=== PATIENT | male | born 1990 | race Caucasian/White ===

== ENCOUNTER 2018-02-10 19:25 | Inpatient (IN) | payer OTHER ==
[2018-02-10] MEDS ORDERED: morphine 2 MG INJ IV (20:30)
[2018-02-10] MEDS: LORAZEPAM 2 MG INJ IV (22:49)
[2018-02-10] MEDS: DEXTROSE 5%-0.45% NACL 1,000 ML IV (22:50)
[2018-02-11 01:21] LABS: ADD MAN DIFF? NO
[2018-02-11 01:24] LABS: WHITE BLOOD COUNT 8.9 10^3/ul (4.8-10.8)
[2018-02-11 01:24] LABS: BASOPHILS % 0.4 % (0.0-2.0); EOSINOPHILS # 0.1 10^3/ul (0.0-0.5); EOSINOPHILS % 0.6 % (0.0-7.0); HEMATOCRIT 38.3 % (42.0-52.0); LYMPHOCYTES # 1.2 10^3/ul (0.8-2.9); LYMPHOCYTES % 13.4 % (15.0-51.0); MEAN CORPUSCULAR HEMOGLOBIN 31.4 pg (29.0-33.0); MEAN CORPUSCULAR HGB CONC 33.9 g/dl (32.0-37.0); MEAN CORPUSCULAR VOLUME 92.5 fl (82.0-101.0); MONOCYTE # 0.6 10^3/ul (0.3-0.9); MONOCYTES % 6.8 % (0.0-11.0); NEUTROPHILS % 78.5 % (39.0-77.0); PLATELET COUNT 372 10^3/UL (140-415); RED BLOOD COUNT 4.14 10^6/ul (4.70-6.10); RED CELL DISTRIBUTION WIDTH 15.4 % (11.5-14.5)
[2018-02-11 01:41] LABS: ALANINE AMINOTRANSFERASE 141 IU/L (13-69); ALBUMIN 3.4 g/dl (3.3-4.9); ALBUMIN/GLOBULIN RATIO 1.17; ALKALINE PHOSPHATASE 296 IU/L (42-121); ANION GAP 10 (8-16); ASPARTATE AMINO TRANSFERASE 73 IU/L (15-46); BILIRUBIN,INDIRECT 1.6 mg/dl (0-1.1); BLOOD UREA NITROGEN 6 mg/dl (7-20); CALCIUM 9.1 mg/dl (8.4-10.2); CARBON DIOXIDE 27 mmol/L (21-31); CHLORIDE 105 mmol/L (97-110); CREATININE 0.72 mg/dl (0.61-1.24); GLUCOSE 104 mg/dl (70-220); LIPASE 210 U/L (23-300); PHOSPHORUS 3.3 mg/dl (2.5-4.9); POTASSIUM 3.2 mmol/L (3.5-5.1); SODIUM 139 mmol/L (135-144); TOTAL PROTEIN 6.3 g/dl (6.1-8.1)
[2018-02-11] MEDS: DEXTROSE 5%-0.45% NACL 1,000 ML IV ×2 (06:30→15:03)
[2018-02-11] MEDS: POTASSIUM CHLORIDE 100 ML IVPB (06:57)
[2018-02-11] MEDS: LORAZEPAM 2 MG INJ IV ×2 (06:57→15:03)
[2018-02-11] MEDS: GABAPENTIN 100 MG CAP PO ×3 (10:24→21:00)
[2018-02-11] MEDS: clonAZEPAM 0.5 MG TAB PO ×2 (10:24→18:43)
[2018-02-11] MEDS: LURASIDONE XX ×2 (12:50→20:04)
[2018-02-11] MEDS: LATUDA 60 MG PO (21:00)
[2018-02-12 07:36] LABS: ADD MAN DIFF? NO
[2018-02-12 07:38] LABS: BASOPHIL # 0.1 10^3/ul (0.0-0.1); BASOPHILS % 0.8 % (0.0-2.0); EOSINOPHILS # 0.1 10^3/ul (0.0-0.5); EOSINOPHILS % 1.2 % (0.0-7.0); HEMATOCRIT 41.4 % (42.0-52.0); HEMOGLOBIN 13.9 g/dl (14.0-18.0); LYMPHOCYTES # 1.2 10^3/ul (0.8-2.9); LYMPHOCYTES % 19.3 % (15.0-51.0); MEAN CORPUSCULAR HEMOGLOBIN 30.7 pg (29.0-33.0); MEAN CORPUSCULAR HGB CONC 33.6 g/dl (32.0-37.0); MEAN CORPUSCULAR VOLUME 91.4 fl (82.0-101.0); MEAN PLATELET VOLUME 11.3 fl (7.4-10.4); MONOCYTE # 0.4 10^3/ul (0.3-0.9); NEUTROPHIL # 4.3 10^3/ul (1.6-7.5); NEUTROPHILS % 71.5 % (39.0-77.0); PLATELET COUNT 390 10^3/UL (140-415); RED BLOOD COUNT 4.53 10^6/ul (4.70-6.10); RED CELL DISTRIBUTION WIDTH 15.1 % (11.5-14.5)
[2018-02-12 08:00] LABS: ALANINE AMINOTRANSFERASE 147 IU/L (13-69); ALBUMIN 3.9 g/dl (3.3-4.9); ALBUMIN/GLOBULIN RATIO 1.34; ALKALINE PHOSPHATASE 326 IU/L (42-121); ANION GAP 16 (8-16); ASPARTATE AMINO TRANSFERASE 103 IU/L (15-46); BILIRUBIN,TOTAL 8.2 mg/dl (0.2-1.3); BLOOD UREA NITROGEN 6 mg/dl (7-20); CALCIUM 9.5 mg/dl (8.4-10.2); CARBON DIOXIDE 27 mmol/L (21-31); CHLORIDE 103 mmol/L (97-110); GLUCOSE 103 mg/dl (70-220); POTASSIUM 3.5 mmol/L (3.5-5.1); SODIUM 142 mmol/L (135-144); TOTAL PROTEIN 6.8 g/dl (6.1-8.1)
[2018-02-12] MEDS: GABAPENTIN 100 MG CAP PO ×3 (09:00→20:44)
[2018-02-12] MEDS: DEXTROSE 5%-0.45% NACL 1,000 ML IV (09:04)
[2018-02-12] MEDS: LORAZEPAM 2 MG INJ IV (10:07)
[2018-02-12] MEDS ORDERED: IOHEXOL 300MG/ML 30 ML BTL ×2 (13:02→15:34)
[2018-02-12] MEDS ORDERED: MIDAZOLAM 1 MG/ML 2 ML INJ (15:48)
[2018-02-12] MEDS ORDERED: METOCLOPRAMIDE 10 MG INJ (15:48)
[2018-02-12] MEDS ORDERED: PROPOFOL 20 ML (15:51)
[2018-02-12] MEDS ORDERED: ONDANSETRON 4 MG INJ (15:51)
[2018-02-12] MEDS ORDERED: SUCCINYLCHOLINE CHLORIDE 100 MG/5 ML SYG IV (15:51)
[2018-02-12] MEDS ORDERED: FENTAnyl 50 MCG/ML VIAL (15:51)
[2018-02-12] MEDS ORDERED: HYDROmorphONE 1 MG/5 ML IV SYRINGE IV ×3 (16:30)
[2018-02-12] MEDS ORDERED: ONDANSETRON 4 MG INJ IV (16:30)
[2018-02-12] MEDS: LATUDA 60 MG PO (20:44)
[2018-02-13] MEDS: INDOMETHACIN 50 MG SUPP PR (05:49)
[2018-02-13] MEDS: SOD CHLORIDE 0.9% 1,000 ML IV (05:49)
[2018-02-13] MEDS: ONDANSETRON 4 MG INJ IV ×2 (07:39→19:13)
[2018-02-13] MEDS: DULOXETINE 30 MG CAP DR PO (07:42)
[2018-02-13] MEDS: GABAPENTIN 100 MG CAP PO ×3 (07:42→21:04)
[2018-02-13] MEDS ORDERED: BUPIVACAINE 0.25% (MPF) 30 ML INJ (14:28)
[2018-02-13] MEDS ORDERED: BUPIVACAINE 0.25%/EPI (SDV) 30 ML INJ (15:42)
[2018-02-13] MEDS ORDERED: NEOSTIGMINE 3 MG/3 ML SYRINGE (15:55)
[2018-02-13] MEDS ORDERED: MIDAZOLAM 1 MG/ML 2 ML INJ (15:55)
[2018-02-13] MEDS ORDERED: METOCLOPRAMIDE 10 MG INJ (15:55)
[2018-02-13] MEDS ORDERED: ONDANSETRON 4 MG INJ (15:55)
[2018-02-13] MEDS ORDERED: ROCURONIUM 50 MG INJ (15:55)
[2018-02-13] MEDS ORDERED: PROPOFOL 20 ML ×2 (15:55→17:38)
[2018-02-13] MEDS ORDERED: ROPIVACAINE 0.5 % 30 ML VIAL (15:55)
[2018-02-13] MEDS ORDERED: KETOROLAC 30 MG INJ (15:55)
[2018-02-13] MEDS ORDERED: DIPHENHYDRAMINE 50 MG INJ IV (16:00)
[2018-02-13] MEDS ORDERED: MEPERIDINE 25 MG INJ IV (16:00)
[2018-02-13] MEDS ORDERED: HYDROmorphONE 1 MG/5 ML IV SYRINGE IV ×2 (16:00)
[2018-02-13] MEDS ORDERED: CEFAZOLIN 1 GM INJ (16:50)
[2018-02-13] MEDS: BUPIVACAINE 0.25%/EPI (SDV) 30 ML INJ INJ (17:07)
[2018-02-13] MEDS ORDERED: FENTAnyl 50 MCG/ML VIAL (17:53)
[2018-02-13] MEDS ORDERED: morphine 2 MG INJ IV (18:30)
[2018-02-13] MEDS ORDERED: OXYCODONE/ACETAMINOPHEN (5/325) TAB PO (18:30)
[2018-02-13] MEDS: HYDROmorphONE 1 MG/5 ML IV SYRINGE IV (19:16)
[2018-02-13] MEDS: LATUDA 60 MG PO (21:05)
[2018-02-13] MEDS ORDERED: morphine LIQ (10 MG/5 ML) CUP PO (23:00)
[2018-02-14] MEDS: clonAZEPAM 0.5 MG TAB PO ×2 (01:35→20:00)
[2018-02-14 06:38] LABS: ADD MAN DIFF? NO
[2018-02-14 06:44] LABS: BASOPHILS % 0.2 % (0.0-2.0); EOSINOPHILS # 0.1 10^3/ul (0.0-0.5); EOSINOPHILS % 0.3 % (0.0-7.0); HEMATOCRIT 38.8 % (42.0-52.0); HEMOGLOBIN 13.2 g/dl (14.0-18.0); LYMPHOCYTES % 6.7 % (15.0-51.0); MEAN CORPUSCULAR HEMOGLOBIN 30.6 pg (29.0-33.0); MEAN CORPUSCULAR VOLUME 89.8 fl (82.0-101.0); MEAN PLATELET VOLUME 11.5 fl (7.4-10.4); MONOCYTE # 0.7 10^3/ul (0.3-0.9); MONOCYTES % 4.8 % (0.0-11.0); NEUTROPHIL # 13.2 10^3/ul (1.6-7.5); NEUTROPHILS % 87.3 % (39.0-77.0); PLATELET COUNT 385 10^3/UL (140-415); RED BLOOD COUNT 4.32 10^6/ul (4.70-6.10); RED CELL DISTRIBUTION WIDTH 15.4 % (11.5-14.5)
[2018-02-14 06:44] LABS: WHITE BLOOD COUNT 15.2 10^3/ul (4.8-10.8)
[2018-02-14] MEDS: ONDANSETRON 4 MG INJ IV ×2 (06:59→14:21)
[2018-02-14] MEDS: OXYCODONE/ACETAMINOPHEN (5/325) TAB PO (07:00)
[2018-02-14 07:05] LABS: ALANINE AMINOTRANSFERASE 113 IU/L (13-69); ALBUMIN/GLOBULIN RATIO 1.07; ALKALINE PHOSPHATASE 260 IU/L (42-121); ANION GAP 11 (8-16); ASPARTATE AMINO TRANSFERASE 116 IU/L (15-46); BILIRUBIN,INDIRECT 1.6 mg/dl (0-1.1); BILIRUBIN,TOTAL 6.1 mg/dl (0.2-1.3); BLOOD UREA NITROGEN 11 mg/dl (7-20); CALCIUM 8.5 mg/dl (8.4-10.2); CARBON DIOXIDE 28 mmol/L (21-31); CHLORIDE 103 mmol/L (97-110); CREATININE 0.67 mg/dl (0.61-1.24); GLUCOSE 109 mg/dl (70-220); POTASSIUM 3.6 mmol/L (3.5-5.1); SODIUM 138 mmol/L (135-144); TOTAL PROTEIN 5.8 g/dl (6.1-8.1)
[2018-02-14] MEDS: DULOXETINE 30 MG CAP DR PO (09:25)
[2018-02-14] MEDS: GABAPENTIN 100 MG CAP PO ×3 (09:25→20:00)
[2018-02-14] MEDS: LATUDA 60 MG PO (20:01)
[2018-02-14] MEDS: SOD CHLORIDE 0.9% 500 ML IV (23:43)
[2018-02-15 06:32] LABS: ADD MAN DIFF? NO
[2018-02-15 06:44] LABS: WHITE BLOOD COUNT 20.6 10^3/ul (4.8-10.8)
[2018-02-15 06:44] LABS: BASOPHILS % 0.1 % (0.0-2.0); EOSINOPHILS % 0.2 % (0.0-7.0); HEMATOCRIT 37.5 % (42.0-52.0); HEMOGLOBIN 12.9 g/dl (14.0-18.0); MEAN CORPUSCULAR HEMOGLOBIN 31.1 pg (29.0-33.0); MEAN CORPUSCULAR HGB CONC 34.4 g/dl (32.0-37.0); MEAN CORPUSCULAR VOLUME 90.4 fl (82.0-101.0); MEAN PLATELET VOLUME 11.8 fl (7.4-10.4); MONOCYTE # 1.1 10^3/ul (0.3-0.9); MONOCYTES % 5.2 % (0.0-11.0); NEUTROPHIL # 18.3 10^3/ul (1.6-7.5); NEUTROPHILS % 88.8 % (39.0-77.0); PLATELET COUNT 363 10^3/UL (140-415); RED BLOOD COUNT 4.15 10^6/ul (4.70-6.10); RED CELL DISTRIBUTION WIDTH 15.5 % (11.5-14.5)
[2018-02-15 07:11] LABS: ALANINE AMINOTRANSFERASE 90 IU/L (13-69); ALBUMIN 3.2 g/dl (3.3-4.9); ALBUMIN/GLOBULIN RATIO 1.18; ALKALINE PHOSPHATASE 267 IU/L (42-121); ANION GAP 16 (8-16); ASPARTATE AMINO TRANSFERASE 77 IU/L (15-46); BILIRUBIN,INDIRECT 1.7 mg/dl (0-1.1); BILIRUBIN,TOTAL 6.3 mg/dl (0.2-1.3); BLOOD UREA NITROGEN 7 mg/dl (7-20); CALCIUM 8.6 mg/dl (8.4-10.2); CARBON DIOXIDE 27 mmol/L (21-31); CHLORIDE 100 mmol/L (97-110); CREATININE 0.58 mg/dl (0.61-1.24); GLUCOSE 96 mg/dl (70-220); POTASSIUM 3.5 mmol/L (3.5-5.1); SODIUM 139 mmol/L (135-144); TOTAL PROTEIN 5.9 g/dl (6.1-8.1)
[2018-02-15] MEDS: GABAPENTIN 100 MG CAP PO ×3 (07:57→21:00)
[2018-02-15] MEDS: DULOXETINE 30 MG CAP DR PO (07:57)
[2018-02-15] MEDS: LORAZEPAM 2 MG INJ IV ×2 (07:58→20:47)
[2018-02-15] MEDS: CEFAZOLIN 1 GM/50 ML (PMX) 50 ML IVPB ×3 (07:58→21:55)
[2018-02-15] MEDS ORDERED: CEFAZOLIN 1 GM/50 ML (PMX) 50 ML IVPB (14:00)
[2018-02-15] MEDS: LATUDA 60 MG PO (21:00)
[2018-02-16] MEDS: CEFAZOLIN 1 GM/50 ML (PMX) 50 ML IVPB ×3 (05:55→22:35)
[2018-02-16 06:55] LABS: ADD MAN DIFF? NO
[2018-02-16 06:57] LABS: BASOPHILS % 0.2 % (0.0-2.0); EOSINOPHILS # 0.1 10^3/ul (0.0-0.5); EOSINOPHILS % 0.3 % (0.0-7.0); HEMATOCRIT 36.3 % (42.0-52.0); HEMOGLOBIN 12.8 g/dl (14.0-18.0); LYMPHOCYTES # 1.1 10^3/ul (0.8-2.9); LYMPHOCYTES % 5.4 % (15.0-51.0); MEAN CORPUSCULAR HEMOGLOBIN 32.1 pg (29.0-33.0); MEAN CORPUSCULAR HGB CONC 35.3 g/dl (32.0-37.0); MEAN PLATELET VOLUME 11.3 fl (7.4-10.4); MONOCYTE # 1.3 10^3/ul (0.3-0.9); MONOCYTES % 6.2 % (0.0-11.0); NEUTROPHIL # 17.9 10^3/ul (1.6-7.5); NEUTROPHILS % 87.3 % (39.0-77.0); PLATELET COUNT 374 10^3/UL (140-415); RED BLOOD COUNT 3.99 10^6/ul (4.70-6.10); RED CELL DISTRIBUTION WIDTH 15.2 % (11.5-14.5)
[2018-02-16 06:57] LABS: WHITE BLOOD COUNT 20.6 10^3/ul (4.8-10.8)
[2018-02-16 07:26] LABS: ALANINE AMINOTRANSFERASE 65 IU/L (13-69); ALBUMIN 3.1 g/dl (3.3-4.9); ALBUMIN/GLOBULIN RATIO 1.06; ALKALINE PHOSPHATASE 234 IU/L (42-121); ANION GAP 14 (8-16); ASPARTATE AMINO TRANSFERASE 49 IU/L (15-46); BILIRUBIN,INDIRECT 1.6 mg/dl (0-1.1); BILIRUBIN,TOTAL 6.6 mg/dl (0.2-1.3); BLOOD UREA NITROGEN 9 mg/dl (7-20); CALCIUM 8.5 mg/dl (8.4-10.2); CARBON DIOXIDE 28 mmol/L (21-31); CHLORIDE 97 mmol/L (97-110); GLUCOSE 102 mg/dl (70-220); POTASSIUM 3.5 mmol/L (3.5-5.1); SODIUM 135 mmol/L (135-144)
[2018-02-16] MEDS: GABAPENTIN 100 MG CAP PO ×3 (08:16→20:19)
[2018-02-16] MEDS: DULOXETINE 30 MG CAP DR PO (08:16)
[2018-02-16] MEDS: LATUDA 60 MG PO ×2 (09:03→20:20)
[2018-02-16] MEDS: LORAZEPAM 2 MG INJ IV (12:35)
[2018-02-17] MEDS: CEFAZOLIN 1 GM/50 ML (PMX) 50 ML IVPB (05:28)
[2018-02-17] MEDS: DULOXETINE 30 MG CAP DR PO (07:40)
[2018-02-17] MEDS: GABAPENTIN 100 MG CAP PO (07:41)
[2018-02-17 10:11] LABS: ADD MAN DIFF? NO
[2018-02-17 10:13] LABS: WHITE BLOOD COUNT 20.6 10^3/ul (4.8-10.8)
[2018-02-17 10:13] LABS: BASOPHIL # 0.1 10^3/ul (0.0-0.1); BASOPHILS % 0.4 % (0.0-2.0); EOSINOPHILS # 0.1 10^3/ul (0.0-0.5); EOSINOPHILS % 0.4 % (0.0-7.0); HEMATOCRIT 38.7 % (42.0-52.0); HEMOGLOBIN 13.5 g/dl (14.0-18.0); LYMPHOCYTES # 1.3 10^3/ul (0.8-2.9); LYMPHOCYTES % 6.1 % (15.0-51.0); MEAN CORPUSCULAR HEMOGLOBIN 31.5 pg (29.0-33.0); MEAN CORPUSCULAR HGB CONC 34.9 g/dl (32.0-37.0); MEAN CORPUSCULAR VOLUME 90.2 fl (82.0-101.0); MEAN PLATELET VOLUME 10.7 fl (7.4-10.4); MONOCYTE # 1.3 10^3/ul (0.3-0.9); MONOCYTES % 6.4 % (0.0-11.0); NEUTROPHIL # 17.8 10^3/ul (1.6-7.5); PLATELET COUNT 491 10^3/UL (140-415); RED BLOOD COUNT 4.29 10^6/ul (4.70-6.10); RED CELL DISTRIBUTION WIDTH 15.2 % (11.5-14.5)
[2018-02-17 10:36] LABS: ALANINE AMINOTRANSFERASE 52 IU/L (13-69); ALBUMIN 3.5 g/dl (3.3-4.9); ALKALINE PHOSPHATASE 257 IU/L (42-121); ANION GAP 16 (8-16); ASPARTATE AMINO TRANSFERASE 58 IU/L (15-46); BILIRUBIN,INDIRECT 1.6 mg/dl (0-1.1); BILIRUBIN,TOTAL 4.5 mg/dl (0.2-1.3); BLOOD UREA NITROGEN 10 mg/dl (7-20); CALCIUM 8.9 mg/dl (8.4-10.2); CARBON DIOXIDE 27 mmol/L (21-31); CHLORIDE 95 mmol/L (97-110); CREATININE 0.58 mg/dl (0.61-1.24); GLUCOSE 124 mg/dl (70-220); POTASSIUM 3.5 mmol/L (3.5-5.1); SODIUM 134 mmol/L (135-144)
== END 2018-02-17 11:00 | disposition home or self-care (01) | DRG 419 ==
LOC: 5EC 19:25
PROC: 0FC98ZZ Extirpation of Matter from Common Bile Duct, Via Natural or Artificial Opening Endoscopic (ICD-10-PCS; 2018-02-12 14:30)
PROC: 0F798DZ Dilation of Common Bile Duct with Intraluminal Device, Via Natural or Artificial Opening Endoscopic (ICD-10-PCS; 2018-02-12 14:30)
PROC: 0FT44ZZ Resection of Gallbladder, Percutaneous Endoscopic Approach (ICD-10-PCS; principal; 2018-02-12 15:39)
DX: K80.62 Calculus of gallbladder and bile duct with acute cholecystitis without obstruction (principal); F25.1 Schizoaffective disorder, depressive type; F41.9 Anxiety disorder, unspecified; F17.200 Nicotine dependence, unspecified, uncomplicated
CPT/HCPCS: 74018; 74181; 74330; 78226; 80053; 83690; 83735; 84100; 85025; 88304

== ENCOUNTER 2018-02-20 16:18 | Inpatient (IN) | payer OTHER ==
[2018-02-20] MEDS ORDERED: NON-FORMULARY/PATIENT OWN MED (Lurasidone Hcl (Latuda) 60 MG) PO (18:00)
[2018-02-20] MEDS ORDERED: clonAZEPAM 0.5 MG TAB PO (18:00)
[2018-02-20] MEDS ORDERED: morphine 2 MG INJ IV (18:00)
[2018-02-20] MEDS ORDERED: NAPROXEN 500 MG TAB PO (18:00)
[2018-02-20] MEDS ORDERED: DOCUSATE SODIUM 100 MG CAP PO (18:00)
[2018-02-20] MEDS ORDERED: NACL 0.9% 3 ML SYG IV (18:00)
[2018-02-20] MEDS ORDERED: ONDANSETRON 4 MG INJ IV (18:00)
[2018-02-20] MEDS ORDERED: ACETAMINOPHEN 325 MG TAB PO (18:00)
[2018-02-20] MEDS: PIPER-TAZO 3.375 GM IV (PMX) 100 ML IVPB (18:39)
[2018-02-20] MEDS ORDERED: MAGNESIUM HYDROXIDE 30ML CUP PO (19:30)
[2018-02-20] MEDS ORDERED: BISACODYL (EC) 5 MG TAB PO (19:30)
[2018-02-20] MEDS: PANTOPRAZOLE 40 MG INJ IV (19:55)
[2018-02-20] MEDS: LORAZEPAM 1 MG TAB PO (19:55)
[2018-02-20] MEDS: DOCUSATE SODIUM 100 MG CAP PO (21:00)
[2018-02-20] MEDS: GABAPENTIN 100 MG CAP PO (21:11)
[2018-02-20] MEDS: ZOLPIDEM 5 MG TAB PO (21:11)
[2018-02-21] MEDS: PIPER-TAZO 3.375 GM IV (PMX) 100 ML IVPB ×4 (00:22→18:16)
[2018-02-21] MEDS: PANTOPRAZOLE 40 MG INJ IV ×2 (05:57→12:00)
[2018-02-21 06:15] LABS: ADD MAN DIFF? NO
[2018-02-21 06:31] LABS: WHITE BLOOD COUNT 10.9 10^3/ul (4.8-10.8)
[2018-02-21 06:31] LABS: BASOPHIL # 0.1 10^3/ul (0.0-0.1); BASOPHILS % 0.6 % (0.0-2.0); EOSINOPHILS # 0.2 10^3/ul (0.0-0.5); HEMATOCRIT 22.2 % (42.0-52.0); HEMOGLOBIN 7.5 g/dl (14.0-18.0); LYMPHOCYTES # 1.9 10^3/ul (0.8-2.9); LYMPHOCYTES % 17.3 % (15.0-51.0); MEAN CORPUSCULAR HEMOGLOBIN 30.9 pg (29.0-33.0); MEAN CORPUSCULAR HGB CONC 33.8 g/dl (32.0-37.0); MEAN CORPUSCULAR VOLUME 91.4 fl (82.0-101.0); MEAN PLATELET VOLUME 10.6 fl (7.4-10.4); MONOCYTE # 0.9 10^3/ul (0.3-0.9); MONOCYTES % 8.5 % (0.0-11.0); NEUTROPHIL # 7.3 10^3/ul (1.6-7.5); NEUTROPHILS % 67.1 % (39.0-77.0); PLATELET COUNT 367 10^3/UL (140-415); RED BLOOD COUNT 2.43 10^6/ul (4.70-6.10)
[2018-02-21 07:12] LABS: ALANINE AMINOTRANSFERASE 78 IU/L (13-69); ALBUMIN 2.3 g/dl (3.3-4.9); ALBUMIN/GLOBULIN RATIO 0.95; ALKALINE PHOSPHATASE 207 IU/L (42-121); ANION GAP 7 (8-16); ASPARTATE AMINO TRANSFERASE 99 IU/L (15-46); BILIRUBIN,INDIRECT 0.6 mg/dl (0-1.1); BILIRUBIN,TOTAL 0.6 mg/dl (0.2-1.3); BLOOD UREA NITROGEN 15 mg/dl (7-20); CALCIUM 8.1 mg/dl (8.4-10.2); CARBON DIOXIDE 28 mmol/L (21-31); CHLORIDE 105 mmol/L (97-110); CREATININE 0.63 mg/dl (0.61-1.24); GLUCOSE 93 mg/dl (70-220); MAGNESIUM 2.1 mg/dl (1.7-2.5); PHOSPHORUS 3.6 mg/dl (2.5-4.9); POTASSIUM 4.3 mmol/L (3.5-5.1); SODIUM 136 mmol/L (135-144); TOTAL PROTEIN 4.7 g/dl (6.1-8.1)
[2018-02-21] MEDS: LORAZEPAM 1 MG TAB PO ×2 (08:17→18:37)
[2018-02-21] MEDS: GABAPENTIN 100 MG CAP PO ×3 (08:17→20:59)
[2018-02-21] MEDS: LURASIDONE IS XX ×2 (08:30→16:30)
[2018-02-21] MEDS: DOCUSATE SODIUM 100 MG CAP PO ×2 (09:00→21:00)
[2018-02-21 10:38] LABS: OCCULT BLOOD STOOL POSITIVE (NEGATIVE)
[2018-02-21 10:40] LABS: HEMOGLOBIN A1C 5.4 % (0-5.9)
[2018-02-21] MEDS: PANTOPRAZOLE IV 80 MG in SOD CHLORIDE 0.9% 100 ML IV (13:30)
[2018-02-21] MEDS: SOD CHLORIDE 0.9% 250 ML IV* (15:00)
[2018-02-21 15:59] LABS: IMMEDIATE SPIN CROSSMATCH 1 2
[2018-02-21] MEDS: ZOLPIDEM 5 MG TAB PO (20:59)
[2018-02-22] MEDS: PIPER-TAZO 3.375 GM IV (PMX) 100 ML IVPB ×5 (00:08→23:03)
[2018-02-22] MEDS: LURASIDONE IS XX (00:30)
[2018-02-22] MEDS: PANTOPRAZOLE IV 80 MG in SOD CHLORIDE 0.9% 100 ML IV ×4 (00:59→23:04)
[2018-02-22 05:34] LABS: ADD MAN DIFF? NO
[2018-02-22 05:44] LABS: BASOPHIL # 0.1 10^3/ul (0.0-0.1); BASOPHILS % 0.7 % (0.0-2.0); EOSINOPHILS # 0.2 10^3/ul (0.0-0.5); EOSINOPHILS % 2.9 % (0.0-7.0); HEMATOCRIT 28.4 % (42.0-52.0); HEMOGLOBIN 9.8 g/dl (14.0-18.0); LYMPHOCYTES # 1.6 10^3/ul (0.8-2.9); LYMPHOCYTES % 19.3 % (15.0-51.0); MEAN CORPUSCULAR HEMOGLOBIN 31.6 pg (29.0-33.0); MEAN CORPUSCULAR HGB CONC 34.5 g/dl (32.0-37.0); MEAN CORPUSCULAR VOLUME 91.6 fl (82.0-101.0); MEAN PLATELET VOLUME 10.2 fl (7.4-10.4); MONOCYTE # 0.8 10^3/ul (0.3-0.9); MONOCYTES % 9.5 % (0.0-11.0); NEUTROPHIL # 5.1 10^3/ul (1.6-7.5); NEUTROPHILS % 62.6 % (39.0-77.0); NUCLEATED RED BLOOD CELLS% 0.2 /100WBC (0.0-0.0); PLATELET COUNT 371 10^3/UL (140-415); RED CELL DISTRIBUTION WIDTH 15.4 % (11.5-14.5)
[2018-02-22 05:44] LABS: WHITE BLOOD COUNT 8.2 10^3/ul (4.8-10.8)
[2018-02-22 06:09] LABS: ALANINE AMINOTRANSFERASE 87 IU/L (13-69); ALBUMIN 2.6 g/dl (3.3-4.9); ALBUMIN/GLOBULIN RATIO 1.04; ALKALINE PHOSPHATASE 177 IU/L (42-121); ANION GAP 8 (8-16); ASPARTATE AMINO TRANSFERASE 103 IU/L (15-46); BILIRUBIN,INDIRECT 0.6 mg/dl (0-1.1); BILIRUBIN,TOTAL 0.6 mg/dl (0.2-1.3); BLOOD UREA NITROGEN 9 mg/dl (7-20); CALCIUM 8.4 mg/dl (8.4-10.2); CARBON DIOXIDE 28 mmol/L (21-31); CHLORIDE 105 mmol/L (97-110); GLUCOSE 93 mg/dl (70-220); POTASSIUM 4.3 mmol/L (3.5-5.1); SODIUM 137 mmol/L (135-144); TOTAL PROTEIN 5.1 g/dl (6.1-8.1)
[2018-02-22] MEDS: LORAZEPAM 1 MG TAB PO (06:50)
[2018-02-22] MEDS: GABAPENTIN 100 MG CAP PO ×3 (08:38→20:43)
[2018-02-22] MEDS: DOCUSATE SODIUM 100 MG CAP PO ×2 (08:38→20:44)
[2018-02-22] MEDS: DULOXETINE 30 MG CAP DR PO (13:06)
[2018-02-22] MEDS: INDOMETHACIN 50 MG SUPP PR (15:08)
[2018-02-22 18:08] LABS: HEMOGLOBIN 9.6 g/dl (14.0-18.0)
[2018-02-22] MEDS: clonAZEPAM 0.5 MG TAB PO (20:43)
[2018-02-22] MEDS: LURASIDONE (LATUDA) 60 MG TABLET PO (20:44)
[2018-02-22] MEDS: ZOLPIDEM 5 MG TAB PO (20:44)
[2018-02-23] MEDS: INDOMETHACIN 50 MG SUPP PR ×2 (01:30→01:43)
[2018-02-23] MEDS: PANTOPRAZOLE IV 80 MG in SOD CHLORIDE 0.9% 100 ML IV ×3 (05:30→15:30)
[2018-02-23] MEDS: PIPER-TAZO 3.375 GM IV (PMX) 100 ML IVPB ×3 (06:27→17:40)
[2018-02-23] MEDS ORDERED: ROCURONIUM 50 MG INJ ×2 (07:00→14:06)
[2018-02-23] MEDS ORDERED: LIDOCAINE 2% (SDV) 5 ML INJ (07:00)
[2018-02-23] MEDS: DULOXETINE 30 MG CAP DR PO (08:20)
[2018-02-23] MEDS: clonAZEPAM 0.5 MG TAB PO ×2 (08:20→21:00)
[2018-02-23] MEDS: GABAPENTIN 100 MG CAP PO ×3 (08:20→20:09)
[2018-02-23] MEDS: DOCUSATE SODIUM 100 MG CAP PO ×2 (08:20→21:00)
[2018-02-23] MEDS ORDERED: IOHEXOL 300MG/ML 30 ML BTL (12:46)
[2018-02-23] MEDS ORDERED: hydrALAzine 20 MG INJ IV ×2 (13:30→15:00)
[2018-02-23] MEDS ORDERED: OXYCODONE/ACETAMINOPHEN (5/325) TAB PO ×4 (13:30→15:00)
[2018-02-23] MEDS ORDERED: FENTAnyl 50 MCG/ML VIAL IV ×6 (13:30→15:00)
[2018-02-23] MEDS ORDERED: METOCLOPRAMIDE 10 MG INJ IV ×2 (13:30→15:00)
[2018-02-23] MEDS ORDERED: MEPERIDINE 25 MG INJ IV ×2 (13:30→15:00)
[2018-02-23] MEDS ORDERED: HYDROmorphONE 1 MG/5 ML IV SYRINGE IV ×6 (13:30→15:00)
[2018-02-23] MEDS ORDERED: MIDAZOLAM 1 MG/ML 2 ML INJ IV (13:30)
[2018-02-23] MEDS ORDERED: ONDANSETRON 4 MG INJ IV ×2 (13:30→15:00)
[2018-02-23] MEDS ORDERED: KETOROLAC 30 MG INJ IV ×2 (13:30→15:00)
[2018-02-23] MEDS ORDERED: ALBUTEROL 0.083% (NEB) 2.5 MG/3 ML AMP HHN ×2 (13:30→15:00)
[2018-02-23] MEDS ORDERED: DIPHENHYDRAMINE 50 MG INJ IV ×2 (13:30→15:00)
[2018-02-23] MEDS ORDERED: LABETALOL HCL 20MG INJ IV ×2 (13:30→15:00)
[2018-02-23] MEDS ORDERED: EPHEDrine SULFATE 50 MG/5 ML SYG IV ×2 (13:30→15:00)
[2018-02-23] MEDS ORDERED: PROPOFOL 20 ML (14:06)
[2018-02-23] MEDS ORDERED: ONDANSETRON 4 MG INJ (14:07)
[2018-02-23] MEDS ORDERED: DEXAMETHASONE 4 MG/ML 1 ML INJ (14:07)
[2018-02-23] MEDS ORDERED: GLYCOPYRROLATE 0.4 MG INJ (14:51)
[2018-02-23] MEDS ORDERED: NEOSTIGMINE 3 MG/3 ML SYRINGE (14:51)
[2018-02-23] MEDS: HYDROCODONE/APAP (5/325) TAB PO (19:54)
[2018-02-23] MEDS: LURASIDONE (LATUDA) 60 MG TABLET PO (20:08)
[2018-02-23] MEDS: ZOLPIDEM 5 MG TAB PO (21:31)
[2018-02-24] MEDS: PIPER-TAZO 3.375 GM IV (PMX) 100 ML IVPB ×4 (00:01→18:04)
[2018-02-24] MEDS: PANTOPRAZOLE IV 80 MG in SOD CHLORIDE 0.9% 100 ML IV ×2 (01:30→02:28)
[2018-02-24 06:14] LABS: ADD MAN DIFF? NO
[2018-02-24 06:31] LABS: WHITE BLOOD COUNT 12.3 10^3/ul (4.8-10.8)
[2018-02-24 06:31] LABS: BASOPHIL # 0.1 10^3/ul (0.0-0.1); BASOPHILS % 0.4 % (0.0-2.0); EOSINOPHILS % 0.3 % (0.0-7.0); HEMATOCRIT 30.1 % (42.0-52.0); HEMOGLOBIN 10.4 g/dl (14.0-18.0); LYMPHOCYTES # 1.5 10^3/ul (0.8-2.9); LYMPHOCYTES % 12.2 % (15.0-51.0); MEAN CORPUSCULAR HEMOGLOBIN 31.9 pg (29.0-33.0); MEAN CORPUSCULAR HGB CONC 34.6 g/dl (32.0-37.0); MEAN CORPUSCULAR VOLUME 92.3 fl (82.0-101.0); MEAN PLATELET VOLUME 10.2 fl (7.4-10.4); MONOCYTE # 0.7 10^3/ul (0.3-0.9); MONOCYTES % 5.8 % (0.0-11.0); NEUTROPHIL # 9.6 10^3/ul (1.6-7.5); NEUTROPHILS % 78.4 % (39.0-77.0); PLATELET COUNT 485 10^3/UL (140-415); RED BLOOD COUNT 3.26 10^6/ul (4.70-6.10); RED CELL DISTRIBUTION WIDTH 14.4 % (11.5-14.5)
[2018-02-24 06:50] LABS: ANION GAP 13 (8-16); BLOOD UREA NITROGEN 8 mg/dl (7-20); CALCIUM 8.8 mg/dl (8.4-10.2); CARBON DIOXIDE 27 mmol/L (21-31); CHLORIDE 103 mmol/L (97-110); CREATININE 0.69 mg/dl (0.61-1.24); GLUCOSE 99 mg/dl (70-220); POTASSIUM 4.4 mmol/L (3.5-5.1); SODIUM 139 mmol/L (135-144)
[2018-02-24] MEDS: DULOXETINE 30 MG CAP DR PO (08:17)
[2018-02-24] MEDS: DOCUSATE SODIUM 100 MG CAP PO ×3 (08:18→20:49)
[2018-02-24] MEDS: GABAPENTIN 100 MG CAP PO ×3 (08:18→20:49)
[2018-02-24] MEDS: clonAZEPAM 0.5 MG TAB PO ×2 (08:18→20:49)
[2018-02-24] MEDS: LURASIDONE (LATUDA) 60 MG TABLET PO (20:50)
[2018-02-25] MEDS: PIPER-TAZO 3.375 GM IV (PMX) 100 ML IVPB ×3 (00:13→12:12)
[2018-02-25 05:45] LABS: ADD MAN DIFF? NO
[2018-02-25 05:55] LABS: BASOPHIL # 0.1 10^3/ul (0.0-0.1); BASOPHILS % 0.6 % (0.0-2.0); EOSINOPHILS # 0.5 10^3/ul (0.0-0.5); EOSINOPHILS % 4.2 % (0.0-7.0); LYMPHOCYTES # 2.6 10^3/ul (0.8-2.9); MEAN CORPUSCULAR HEMOGLOBIN 30.8 pg (29.0-33.0); MEAN CORPUSCULAR HGB CONC 33.3 g/dl (32.0-37.0); MEAN CORPUSCULAR VOLUME 92.3 fl (82.0-101.0); MEAN PLATELET VOLUME 10.1 fl (7.4-10.4); MONOCYTE # 0.7 10^3/ul (0.3-0.9); MONOCYTES % 6.1 % (0.0-11.0); NEUTROPHIL # 7.5 10^3/ul (1.6-7.5); NEUTROPHILS % 63.4 % (39.0-77.0); PLATELET COUNT 516 10^3/UL (140-415); RED BLOOD COUNT 3.25 10^6/ul (4.70-6.10); RED CELL DISTRIBUTION WIDTH 15.1 % (11.5-14.5)
[2018-02-25 05:55] LABS: WHITE BLOOD COUNT 11.8 10^3/ul (4.8-10.8)
[2018-02-25 06:16] LABS: MAGNESIUM 2.1 mg/dl (1.7-2.5)
[2018-02-25 06:25] LABS: ALANINE AMINOTRANSFERASE 112 IU/L (13-69); ALBUMIN 2.7 g/dl (3.3-4.9); ALBUMIN/GLOBULIN RATIO 1.03; ALKALINE PHOSPHATASE 149 IU/L (42-121); ANION GAP 13 (8-16); ASPARTATE AMINO TRANSFERASE 106 IU/L (15-46); BILIRUBIN,INDIRECT 0.5 mg/dl (0-1.1); BILIRUBIN,TOTAL 0.5 mg/dl (0.2-1.3); BLOOD UREA NITROGEN 9 mg/dl (7-20); CALCIUM 8.9 mg/dl (8.4-10.2); CARBON DIOXIDE 30 mmol/L (21-31); CHLORIDE 104 mmol/L (97-110); CREATININE 0.76 mg/dl (0.61-1.24); GLUCOSE 88 mg/dl (70-220); POTASSIUM 4.3 mmol/L (3.5-5.1); SODIUM 143 mmol/L (135-144); TOTAL PROTEIN 5.3 g/dl (6.1-8.1)
[2018-02-25] MEDS: GABAPENTIN 100 MG CAP PO ×2 (08:52→12:14)
[2018-02-25] MEDS: DULOXETINE 30 MG CAP DR PO (08:52)
[2018-02-25] MEDS: DOCUSATE SODIUM 100 MG CAP PO (08:52)
[2018-02-25] MEDS: clonAZEPAM 0.5 MG TAB PO (08:52)
[2018-02-25] MEDS ORDERED: LURASIDONE (LATUDA) 60 MG TABLET PO (21:00)
== END 2018-02-25 14:46 | disposition home or self-care (01) | DRG 812 ==
LOC: 6WM 16:18
PROC: 0FPB8DZ Removal of Intraluminal Device from Hepatobiliary Duct, Via Natural or Artificial Opening Endoscopic (ICD-10-PCS; principal; 2018-02-23 13:00)
PROC: 0FC98ZZ Extirpation of Matter from Common Bile Duct, Via Natural or Artificial Opening Endoscopic (ICD-10-PCS; 2018-02-23 13:00)
PROC: 30233N1 Transfusion of Nonautologous Red Blood Cells into Peripheral Vein, Percutaneous Approach (ICD-10-PCS; 2018-02-23 13:45)
DX: D62 Acute posthemorrhagic anemia (principal); K92.1 Melena; K80.50 Calculus of bile duct without cholangitis or cholecystitis without obstruction; D50.0 Iron deficiency anemia secondary to blood loss (chronic); Z72.0 Tobacco use; F41.8 Other specified anxiety disorders; D72.829 Elevated white blood cell count, unspecified
CPT/HCPCS: 36430; 74018; 74330; 80048; 80053; 82270; 83036; 83735; 84100; 85014; 85018; 85025; 86850; 86900; 86901; 86920